=== PATIENT | male | born 1935 | race Caucasian/White ===

== ENCOUNTER 2018-11-13 06:11 | Day surgery (SDC) | payer OTHER ==
[2018-11-11 16:56] LABS: BASOPHILS % (AUTO) 0.6 % (0.0-5.0); EOSINOPHILS % (AUTO) 0.6 % (0.0-8.0); HEMATOCRIT 39.4 % (42-54); LYMPHOCYTES % (AUTO) 19.5 % (21.0-51.0); MEAN CORPUSCULAR HEMOGLOBIN 30.3 pg (27.0-33.0); MEAN CORPUSCULAR HGB CONC 31.9 g/dL (32.0-36.0); MONOCYTES % (AUTO) 6.8 % (3.0-13.0); NEUTROPHILS % (AUTO) 72.5 % (40.0-77.0); NUCLEATED RED BLOOD CELLS 0.1 % (0.0-0.19); PLATELET COUNT (AUTO) 162 K/uL (130-400); RED BLOOD CELL COUNT(AUTO) 4.15 MIL/uL (4.50-6.20); RED CELL DISTRIBUTION WIDTH 14.1 % (11.0-15.5); WHITE BLOOD COUNT (AUTO) 11.9 K/uL (4.8-10.8)
[2018-11-11 16:58] VITALS: BP 158/67
[2018-11-11 17:06] LABS: CREATININE 1.4 mg/dL (0.5-1.5); POTASSIUM 3.7 mmol/L (3.5-5.1)
--- NOTE | 2018-11-11 17:23 | NUR ---
NOTE DR PULLIAM HAS REVIEWED EKG, NO FURTHER ORDERS GIVEN, OK TO PROCEED.
--- NOTE | 2018-11-12 14:32 | NUR ---
note dr archibald has reviewed labs, no further orders given.
[~2018-11-13] VITALS: Ht 175.3 cm; Wt 104.1 kg
[2018-11-13] VITALS (15 sets, daily range): BP systolic 105–147; BP diastolic 46–73
[~2018-11-13 06:11] MED LIST: AMLO5TAB9 PO; ASPI-555 PO; CALC-1038 PO; FINA5TAB41 PO; FURO20TA4 PO; IBRU140C PO; IRON PO; LORA-705 PO; LOSA1TAB42 PO; MULT-1203 PO; PRAV20TA4 PO; TAMS0.4C32 PO; TRAM50TA4 PO
[2018-11-13] MEDS ORDERED: LACTATED RINGERS 1000ML 1,000 ML IV ONE (07:38)
[2018-11-13] MEDS: CEFTRIAXONE SODIUM 1 GM IVP PRN ×2 (07:55→08:40)
[2018-11-13] MEDS ORDERED: FENTANYL CITRATE PF 50 MCG/1 ML 2ML VIAL ONE (07:57)
[2018-11-13] MEDS ORDERED: LIDOCAINE PF 2% 5ML ABBOJECT ONE (07:57)
[2018-11-13] MEDS ORDERED: PROPOFOL 10 MG/ML 20ML VIAL IV ONE (07:57)
[2018-11-13] MEDS ORDERED: SUCCINYLCHOLINE CHLORIDE 20 MG/ML 10 ML VIAL ONE (08:00)
[2018-11-13] MEDS ORDERED: ROCURONIUM 10MG/1ML SYR 10 MG/ML ML ONE (08:01)
[2018-11-13] MEDS ORDERED: EPHEDRINE SULFATE 50 MG/ML AMPULE ONE (08:36)
[2018-11-13] MEDS ORDERED: GLYCOPYRROLATE 1 MG/5 ML SYRINGE ONE (09:15)
[2018-11-13] MEDS ORDERED: NEOSTIGMINE 5MG/5ML SYR IV ONE (09:15)
[2018-11-13] MEDS ORDERED: MEPERIDINE-PF 25 MG/ML SYG ONE (09:42)
[2018-11-13] MEDS ORDERED: PROMETHAZINE HCL 25 MG/ML 1ML AMPULE IM ONE (09:42)
[2018-11-13] MEDS ORDERED: OPIUM/BELLADONNA ALKALOIDS 1 EACH SUPP.RECT RC ONE (09:54)
--- NOTE | 2018-11-13 10:50 | NUR ---
ASSESSMENT RECEIVED PT FROM PACU STAFF Makeda GARZON RN. PT [id number]. 16F FC DRAINING TO BEDSIDE WITH 200ML OF RED TINGED CLEAR URINE. DENIES PAIN AT THIS TIME. AT BEDSIDE.
[2018-11-13] MEDS ORDERED: PHENAZOPYRIDINE HCL 200 MG TABLET ONE (11:06)
--- NOTE | 2018-11-13 11:40 | NUR ---
DISCHARGE ORAL AND WRITTEN DISCHARGE INSTRUCTIONS GIVEN TO PT ANS PTS . DEMONSTRATION GIVEN TO ON CHANGING OF LEG BAG TO PATTERSON BAG USING ASEPTIC TECHNIQUE. STRESSED IMPORTANCE OF MAINTAINING PENIS IN TRACTION ORDERED BY DR. BOWDEN. VERBALIZED UNDERSTANDING. RETURNED DEMONSTRATION OF CHANGING BAGS. NO OTHER QUESTIONS AT THIS TIME. PRESCRIPTION GIVEN TO PTS .
== END 2018-11-13 12:00 | disposition home or self-care (01) ==
LOC: DAH 06:11
PROVIDERS: ATTEND Urology
DX: C61 Malignant neoplasm of prostate (principal); N42.31 Prostatic intraepithelial neoplasia; N40.1 Benign prostatic hyperplasia with lower urinary tract symptoms; R35.1 Nocturia; C91.10 Chronic lymphocytic leukemia of B-cell type not having achieved remission; I12.9 Hypertensive chronic kidney disease with stage 1 through stage 4 chronic kidney disease, or unspecified chronic kidney disease; Z79.899 Other long term (current) drug therapy; Z88.8 Allergy status to other drugs, medicaments and biological substances; Z98.890 Other specified postprocedural states; K58.9 Irritable bowel syndrome, unspecified; Z68.33 Body mass index [BMI] 33.0-33.9, adult; N18.3 Chronic kidney disease, stage 3 (moderate); R97.20 Elevated prostate specific antigen [PSA]; J30.2 Other seasonal allergic rhinitis; M19.90 Unspecified osteoarthritis, unspecified site
CPT/HCPCS: 36415; 52601; 80048; 85025; 93005; A4218; A4340; A4354; A4358; A4510; A4600; J0330; J0696; J2001; J2175; J2550; J2704; J2710; J3010; J3490 ×2; J7120 ×2; 88305